=== PATIENT | male | born 1965 | race Caucasian/White ===

== ENCOUNTER 2022-01-29 09:14 | Outpatient (CLI) | payer BC, SELFPAY ==
[2022-01-29 14:45] LABS: Chloride* 100 mmol/L (96-114)
[2022-01-29 14:46] LABS: Potassium* 4.4 mmol/L (3.6-5.1); Sodium* 134 mmol/L (135-149)
[2022-01-29 14:48] LABS: Cholesterol* 169 mg/dL (90-199)
[2022-01-29 14:49] LABS: Blood Urea Nitrogen* 25 mg/dL (7-30); Calcium* 8.9 mg/dL (8.4-10.6); Carbon Dioxide* 29 mmol/L (20-32); Creatinine* 0.7 mg/dL (0.5-1.5); Estimated Glomerular Filt Rate 110 ml/min; Glucose* 192 mg/dL (60-115); Triglycerides* 88 mg/dL (40-149)
[2022-01-29 14:50] LABS: HDL Cholesterol* 72 mg/dL (>=40); LDL Cholesterol Calculated 79 mg/dL (<100)
[2022-01-29 15:20] LABS: PSA Screen* 0.54 ng/mL (0.10-4.00)
== END 2022-01-29 09:15 | disposition home or self-care (01) ==
PROVIDERS: PCP Family Medicine; Visit Provider Family Medicine
DX: E78.5 Hyperlipidemia, unspecified (principal); I10 Essential (primary) hypertension; E10.9 Type 1 diabetes mellitus without complications; Z12.5 Encounter for screening for malignant neoplasm of prostate
CPT/HCPCS: 80048; 80061; 84153

== ENCOUNTER 2023-03-14 08:47 | Outpatient (CLI) | payer BC, SELFPAY | END 2023-03-14 08:48 | disposition home or self-care (01) | PROVIDERS: PCP Family Medicine; Visit Provider Family Medicine | DX: E10.9 Type 1 diabetes mellitus without complications (principal); E78.5 Hyperlipidemia, unspecified; I10 Essential (primary) hypertension; Z12.5 Encounter for screening for malignant neoplasm of prostate | CPT/HCPCS: 80048; 80061; 82043; 82570; 84153 ==

== ENCOUNTER 2024-07-22 09:54 | Outpatient (CLI) | payer BC, SELFPAY | END 2024-07-22 09:55 | disposition home or self-care (01) | PROVIDERS: PCP Family Medicine; Visit Provider Family Medicine | DX: I10 Essential (primary) hypertension (principal); E78.2 Mixed hyperlipidemia; E10.9 Type 1 diabetes mellitus without complications; Z12.5 Encounter for screening for malignant neoplasm of prostate | CPT/HCPCS: 80048; 80061; 84460; G0103 ==

== ENCOUNTER 2025-01-21 09:35 | Outpatient (CLI) | payer BC, SELFPAY ==
--- NOTE | 2025-02-02 08:26 | W.PM.SLEEP ---
Sleep Study Details Details Interpreting Provider: Travis Date of Sleep Study: 01/21/25 Sleep Study Details: STUDY TYPE:? home unattended ? BMI:? 31.1 ORDERING PROVIDER:Clark German INDICATION:? concern for sleep apnea ? SLEEP SUMMARY:? 414 minutes monitored RESPIRATORY SUMMARY:? AHI is 6.8 per rule 1A, 4.1 per CMS guideline Low oxygen 88 0.2% of study oxygen less than 90% Snoring 56.1% PERIODIC LIMB MOVEMENTS OF SLEEP:? not recorded CARDIAC:? range 54-94, mean 60.2 beats per minute IMPRESSION:? mild obstructive sleep apnea RECOMMENDATION: treatment options include CPAP, dental appliance and/or airway expansion surgery.
== END 2025-01-21 09:36 | disposition home or self-care (01) ==
LOC: SLEEP 09:36
PROVIDERS: PCP Family Medicine; Visit Provider Family Medicine
DX: G47.33 Obstructive sleep apnea (adult) (pediatric) (principal)
CPT/HCPCS: 95806

== ENCOUNTER 2025-03-17 06:15 | Day surgery (SDC) | payer BC, SELFPAY ==
[2025-03-17] VITALS (8 sets, daily range): BP systolic 156–178; BP diastolic 81–92; PULSE 65–78; RESP 16; TEMP 34.4–36.2; O2SAT 96–99; BMI 29.4
[2025-03-17] MEDS: BUPIVACAINE 0.5% 30 ML INJECTION (06:55)
[2025-03-17] MEDS: ETHYL CHLORIDE 1 APPLICATION 1 APPLIC TOPICAL (06:55)
--- NOTE | 2025-03-17 07:09 | SUR.PREOP ---
SAME DAY SURGERY LOCAL INJECTION SITE VERIFICATION WAS PERFORMED BY SURGEON AND PATIENT PRIOR TO LOCAL ANESTHETIC BEING INJECTED TO OPERATIVE SITE @ 0655.
[2025-03-17] MEDS: BACITRACIN OINTMENT BULK TUBE 1 APPLIC TOPICAL (07:30)
--- NOTE | 2025-03-17 08:08 | SUR.PHASEII ---
Patient returned to [facility] and sat in recliner. Patient tolerated water. Patient verbalized understanding of discharge instructions and readiness to be discharged.
--- NOTE | 2025-03-17 09:19 | P.ORPRC_ITS ---
Procedure Note Date of procedure: 03/17/25 Procedure: PREOPERATIVE DIAGNOSIS: 1. Right carpal tunnel syndrome POSTOPERATIVE DIAGNOSIS: 1. Right carpal tunnel syndrome PROCEDURE: 1. Right open carpal tunnel release SURGEON: Zain Tse MD. INCUBATOR MACHINE OPERATOR: JOEY Iverson ANESTHESIA: Local anesthetic (50:50 mixture of 1% lidocaine with epi and 0.5% marcaine plain) - 10ml total IMPLANTS: None EBL: 2 mL TOURNIQUET: None COMPLICATIONS: None evident INDICATIONS: The patient is a pleasant 59-year-old male who has experienced right hand numbess/tingling affecting the radial 3.5 digits for multiple months. It has progressively gotten worse. Nonoperative management has been tried and failed, and therefore surgery was recommended. DESCRIPTION OF PROCEDURE: Following a thorough discussion of risks, benefits, and alternatives consent was obtained and the operative extremity was marked. The patient was brought to the operating room and placed supine on the operating table. Local anesthesia induction was undertaken in preop holding. No antibiotics were administered as this was planned to be a local case only. Proper time-out was performed identifying proper patient, site, and procedure. The operative extremity was prepped and draped in the appropriate sterile fashion using ChloraPrep. An incision was made in line with the radial border of the ring finger beginning 1 cm distal to the distal wrist crease and progressing for another 2.5cm distal. Caution was taken to stay proximal to Hinojosa's cardinal line. Sharp incision through the skin, subcutaneous tissue, and palmar fascia was performed. The thenar musculature was bluntly elevated off the transverse carpal ligament. The ligament was directly visualized, and divided sharply with a 15 blade. This was released from its most proximal to the most distal extent. Metzenbaum scissor was also utilized to release the fascia extension proximally. We confirmed complete release of the transverse carpal ligament. Closure was performed with 4-O nylon in interrupted fashion. Soft dressings were applied, and the patient was transferred to the recovery room in stable condition. PLAN: 1. Encourage elevation of the operative extremity. 2. Range of motion of the fingers and hand/wrist as tolerated. 3. Ibuprofen/acetaminophen and/or oxycodone as needed for pain control. 4. Follow up with PA visit or nurse visit in 12-16 days for wound check and suture removal.
== END 2025-03-17 07:55 | disposition home or self-care (01) ==
LOC: OR 06:15
PROVIDERS: PCP Family Medicine; Visit Provider Orthopaedic Surgery Sports Medicine
PROC: (CPT 64721; principal; 2025-03-17 07:15)
DX: G56.01 Carpal tunnel syndrome, right upper limb (principal)
CPT/HCPCS: 64721; A9270; J0665